=== PATIENT | female | born 1995 | race Caucasian/White ===

== ENCOUNTER 2017-05-16 12:38 | Emergency (ER) | payer BC ==
[~2017-05-16] VITALS: Ht 170.2 cm; Wt 54.4 kg
[2017-05-16] MEDS ORDERED: IV NORMAL SALINE 1000 ML BAG IV ONE (13:15)
[2017-05-16] MEDS ORDERED: MORPHINE SULFATE 4 MG/1 ML DISP.SYRIN IV ONE ×2 (13:15→13:45)
[2017-05-16 13:30] LABS: BASOPHILS % (AUTO) 0.7 % (0.0-2.0); EOSINOPHILS % (AUTO) 0.5 % (0.0-7.0); HEMOGLOBIN 13.9 g/dL (10.9-14.3); LYMPHOCYTES # (AUTO) 1.2 K/uL (20.0-40.0); LYMPHOCYTES % (AUTO) 22.9 % (20.5-51.5); MEAN CORPUSCULAR HEMOGLOBIN 29.8 uug (24.7-32.8); MEAN CORPUSCULAR HGB CONC 34 g/dL (32.3-35.6); MEAN CORPUSCULAR VOLUME 88.2 fL (75.5-95.3); MONOCYTES # (AUTO) 0.5 K/uL (2.0-10.0); MONOCYTES % (AUTO) 8.9 % (0.0-11.0); NEUTROPHILS # (AUTO) 3.5 K/uL (1.8-8.9); PLATELET COUNT (AUTO) 241 K/uL (179-408); RED BLOOD CELL COUNT(AUTO) 4.65 MIL/uL (3.63-4.92); WHITE BLOOD COUNT (AUTO) 5.2 K/uL (3.8-11.8)
[2017-05-16] MEDS ORDERED: IOHEXOL 300MG/ML 100 ML INFUS..BTL ONE (13:33)
[2017-05-16] MEDS ORDERED: IV NORMAL SALINE 250 ML IV ONE (13:33)
[2017-05-16 13:35] LABS: CREATININE 0.9 mg/dL (0.6-1.3)
[2017-05-16] MEDS ORDERED: MORPHINE SULFATE 4 MG/1 ML DISP.SYRIN ONE ×2 (13:40→14:02)
[2017-05-16] MEDS ORDERED: MORPHINE SULFATE 2 MG/1 ML DISP.SYRIN ONE ×2 (13:40→14:03)
[2017-05-16 13:48] LABS: BILIRUBIN,DIRECT 0.2 mg/dL (0.0-0.2)
[2017-05-16] MEDS ORDERED: FLUCONAZOLE 100 MG TABLET PO ONE (17:15)
--- NOTE | 2017-05-16 18:16 | NUR ---
IV removed. Catheter intact and site benign. Pressure and 4x4 gauze applied to site. No bleeding noted.
--- NOTE | 2017-05-16 18:16 | NUR ---
Patient discharged to home in stable conditon with family. Written and verbal after care instructions given. Patient verbalizes understanding of instructions. Stressed follow up with pmd or return to ER for worsening s/s.
[2017-05-16 18:17] VITALS: BP 124/77
[2017-05-16] MEDS ORDERED: FLUCONAZOLE 100 MG TABLET ONE (18:27)
[2017-05-16 21:04] LABS: *BILIRUBIN,URIN NEGATIVE (NEGATIVE); *BLOOD, URINE Trace-lysed (NEGATIVE); *COLOR,URINE YELLOW (YELLOW); *KETONES,URINE 2+ (NEGATIVE); *PROTEIN,URINE NEGATIVE (NEGATIVE); *UROBILINOGEN,URINE 0.2 E.U./dl (NORMAL); LEUKOCYTE ESTERASE ,URINE NEGATIVE (NEGATIVE); NITRITE, URINE NEGATIVE (NEGATIVE); UGLUCOSE NEGATIVE (NEGATIVE)
[2017-05-16 21:25] LABS: *CLARITY,URINE SLIGHTLY HAZY (CLEAR); BACTERIA,URINE MODERATE /HPF (NONE SEEN); MUCUS,URINE FEW /LPF (0-FEW); SQUAMOUS EPITHELIAL CELL,UR MODERATE /HPF (NONE SEEN); WBC,URINE 0-3 /HPF (0-3)
== END 2017-05-16 18:18 | disposition home or self-care (01) ==
LOC: ER 12:38
DX: R10.2 Pelvic and perineal pain (principal); Z88.0 Allergy status to penicillin
CPT/HCPCS: 36415; 76856; 83690; 84703; 85025; 85730; 87210; A4663; J2270; J7030; J7050; Q9967